=== PATIENT | female | born 1980 | race American Indian/Alaskan Native ===

== ENCOUNTER 2017-02-25 04:49 | Emergency (ER) | payer SELFPAY ==
[2017-02-25] MEDS ORDERED: TYLENOL ONE (04:59)
[2017-02-25] MEDS ORDERED: TYLENOL PO ONE (05:29)
[2017-02-25 06:01] VITALS: BP 105/65
--- NOTE | 2017-02-25 06:54 | XRay Report ---
FINAL REPORT PROCEDURE: XRAY FOOT COMPLETE RIGHT TECHNIQUE: The right foot radiographs, AP, lateral, and oblique views. CPT 72545 HISTORY: PT STATED THAT SHE STUBBED HER GREAT TOE WHICH CAUSED HER NAIL TO COME OFF ASKED IF SHE HAD STEPPED ON ANY GLASS AFTER SEEING ARTIFACT ON OBLIQUE IMAG AND SHE STATED THERE WAS NO PAIN AROUNDTHAT AREA [facility] [place] [facility] COMPARISON: No prior studies are available for comparison. FINDINGS: Fracture (s) and/or Dislocation(s): None . Alignment: Normal . Joint space(s): Normal . Soft tissues: There is no soft tissue mass. There is soft tissue swelling of the 1st digit.. Bone mineralization: Normal . Foreign bodies: There are radiopaque densities adjacent to the 4th and 5th metatarsal bones which could be foreign bodies.. Calcaneal spurring: None . IMPRESSION: There is no fracture or dislocation. There is no soft tissue mass. There is soft tissue swelling of the 1st digit.. There are radiopaque densities adjacent to the 4th and 5th metatarsal bones which could be foreign bodies..
[2017-02-25] MEDS ORDERED: BOOSTRIX IM ONE (09:18)
[2017-02-25] MEDS ORDERED: TORADOL IM ONE (09:18)
--- NOTE | 2017-02-25 09:51 | Emergency Department Report ---
ED Lower Extremity HPI - General Chief Complaint: Extremity Injury, Lower Stated Complaint: TOE INJURY Time Seen by Provider: 02/25/17 08:54 Source: patient Mode of arrival: Ambulatory Limitations: No Limitations - History of Present Illness Initial Comments: This is a 36-year-old female nontoxic, well nourished in appearance, no acute signs of distress the principal ED complaining of right g= great toe pain status post direct blow has occurred today around 2 AM. Patient stated he was walking up the stairs when she missed a step and hit her great toe against concrete. Patient also now reports the pain is shooting up towards her foot. Patient denies any trauma to her foot area. Denies any foreign body. Denies numbness, tingling, fever, chills, headache, stiff neck, short of breath, nausea or vomiting. Patient also states that her nail came off after impaction. Patient denies any bleeding, laceration, or abrasions. Patient denies any drug allergies. Denies past medical history. Last menstrual period 02/15/2017. Complaint: other (right great toe injury) -: Gradual, This morning Place: street/outdoors Severity: moderate Severity scale (0 -10): 10 Context: direct blow Associated Symptoms: able to partially bear weight, ambulatory. denies: snap/ pop sensation, swelling, numbness, tingling, unable to bear weight - Related Data Previous Rx's Medication Instructions Recorded Last Taken Type Cephalexin [Keflex] 500 mg PO Q8HR 5 Days 02/25/17 Unknown Rx Ibuprofen [Motrin 600 MG tab] 600 mg PO Q8H PRN #30 tablet 02/25/17 Unknown Rx Allergies Allergy/AdvReac Type Severity Reaction Status Date / Time No Known Allergies Allergy Verified 02/25/17 05:29 ED Review of Systems ROS: Stated complaint: TOE INJURY Other details as noted in HPI Constitutional: denies: chills, fever Eyes: denies: eye pain, eye discharge, vision change ENT: denies: ear pain, throat pain Respiratory: denies: cough, shortness of breath, wheezing Cardiovascular: denies: chest pain, palpitations Endocrine: no symptoms reported Gastrointestinal: denies: abdominal pain, nausea, diarrhea Genitourinary: denies: urgency, dysuria, discharge Musculoskeletal: denies: back pain, joint swelling, arthralgia Skin: denies: rash, lesions Neurological: denies: headache, weakness, paresthesias Psychiatric: denies: anxiety, depression Hematological/Lymphatic: denies: easy bleeding, easy bruising ED Past Medical Hx - Past Medical History Previous Medical History?: No - Surgical History Past Surgical History?: No - Social History Smoking Status: Never Smoker Substance Use Type: Alcohol - Medications Home Medications: Home Medications Medication Instructions Recorded Confirmed Last Taken Type Cephalexin [Keflex] 500 mg PO Q8HR 5 Days 02/25/17 Unknown Rx Ibuprofen [Motrin 600 MG tab] 600 mg PO Q8H PRN #30 tablet 02/25/17 Unknown Rx ED Physical Exam - General Limitations: No Limitations General appearance: alert, in no apparent distress - Head Head exam: Present: atraumatic, normocephalic, normal inspection - Eye Eye exam: Present: normal appearance, PERRL, EOMI. Absent: scleral icterus, conjunctival injection, nystagmus, periorbital swelling, periorbital tenderness Pupils: Present: normal accommodation - ENT ENT exam: Present: normal exam, normal orophraynx, mucous membranes moist, TM's normal bilaterally, normal external ear exam - Neck Neck exam: Present: normal inspection, full ROM. Absent: tenderness, meningismus, lymphadenopathy, thyromegaly - Respiratory Respiratory exam: Present: normal lung sounds bilaterally. Absent: respiratory distress, wheezes, rales, rhonchi, stridor, chest wall tenderness, accessory muscle use, decreased breath sounds, prolonged expiratory - Cardiovascular Cardiovascular Exam: Present: regular rate, normal rhythm, normal heart sounds. Absent: bradycardia, tachycardia, irregular rhythm, systolic murmur, diastolic murmur, rubs, gallop - GI/Abdominal GI/Abdominal exam: Present: soft, normal bowel sounds. Absent: distended, tenderness, guarding, rebound, rigid, diminished bowel sounds - Rectal Rectal exam: Present: deferred - Extremities Exam Extremities exam: Present: normal inspection, full ROM, normal capillary refill. Absent: tenderness, pedal edema, joint swelling, calf tenderness - Expanded Lower Extremity Exam Right Hip exam: Present: full ROM, tenderness, external rotation, internal rotation, pelvic stability. Absent: swelling, abrasion, laceration, ecchymosis, deformity , crepidus, dislocation, erythema, shortening Upper Leg exam: Present: normal inspection, full ROM. Absent: tenderness, swelling, abrasion, laceration, ecchymosis, deformity, crepidus, dislocation, erythema Knee exam: Present: normal inspection, full ROM, full knee extension. Absent: tenderness, swelling, abrasion, laceration, ecchymosis, deformity, crepidus, dislocation, erythema, effusion, pain w/ pronation/supination, posterior draw sign, pain/laxity with valgus, pain/laxity with varus Lower Leg exam: Present: normal inspection, full ROM. Absent: tenderness, swelling, abrasion, laceration, ecchymosis, deformity, crepidus, dislocation, erythema, palpable cord, Kin's sign Ankle exam: Present: normal inspection, full ROM. Absent: tenderness, swelling , abrasion, laceration, ecchymosis, deformity, dislocation, erythema, anterior draw sign Foot/Toe exam: Present: normal inspection, full ROM, tenderness, nail avulsion ( complete). Absent: swelling, abrasion, laceration, ecchymosis, deformity, crepidus, dislocation, erythema, amputation, puncture wound, foreign body, calcaneal tenderness, tenderness at base of 5th metatarsal, subungual hematoma Neuro vascular tendon exam: Present: no vascular compromise. Absent: pulse deficit, abnormal cap refill, motor deficit, sensory deficit, tendon deficit, extremity cold to touch, pallor, abnormal 2-point discrimination, decreased fine /light touch, foot drop, peroneal nerve deficit, significant pain with passive ROM of distal joint Gait: Positive: observed and limited by pain 1 - complete nail avulsion - Back Exam Back exam: Present: normal inspection, full ROM. Absent: tenderness, CVA tenderness (R), CVA tenderness (L), muscle spasm, paraspinal tenderness, vertebral tenderness, rash noted - Neurological Exam Neurological exam: Present: alert, oriented X3, CN II-XII intact, normal gait, reflexes normal - Psychiatric Psychiatric exam: Present: normal affect, normal mood - Skin Skin exam: Present: warm, dry, intact, normal color. Absent: rash - Other Other exam information: No trauma, laceration, abrasions noted to the second, third, fourth, and fifth metatarsals. First metatarsal sterile complete nail avulsion present. No bleeding noted. No swelling pus or drainage noted. Normal range of motion. Normal capillary refill. There is no foreign body noted to any metatarsal region. ED Course Vital Signs 02/25/17 05:56 Temperature 97.9 F Pulse Rate 68 Respiratory 18 Rate Blood Pressure 105/65 [Right] O2 Sat by Pulse 100 Oximetry - Reevaluation(s) Reevaluation #1: 02/25/17 09:57 Patient is able speak full sentences but no signs of distress noted. ED Lower Extremity MDM - Medical Decision Making ED course; this is a 36-year-old female that presents with right great toe nail avulsion 1- patient was examined myself. Patient received ibuprofen and Toradol for pain and ED. X-ray has been obtained and results of negative fractures or dislocation or soft tissue swelling or mass to the first digit. However there are radial accident that is adjacent to the fifth and fourth metatarsal bones which could indicate foreign bodies. I spoke to patient about the xray findings and patient stated stepped in glass when she was 15 years old and is aware of the foreign body. 2- patient was discharged with crutches and a sterile soaked 4 x 4 and wrapped with Saman has been applied to the nail avulsion. Patient was given Keflex at the time of discharge. 3- patient was instructed to follow-up with orthopedic doctor in 3-5 days or if symptoms such as numbness, tingling, pus, drainage, fever, chills chest pain or short of breath return to emergency room as was possible. 4- At time time of discharge, the patient does not seem toxic or ill in appearance. No acute signs of distress noted. Patient agrees to discharge treatment plan of care. No further questions noted by the patient. Critical care attestation.: If time is entered above; I have spent that time in minutes in the direct care of this critically ill patient, excluding procedure time. ED Disposition Clinical Impression: Nail avulsion of toe Qualifiers: Encounter type: initial encounter Qualified Code(s): S91.209A - Unspecified open wound of unspecified toe(s) with damage to nail, initial encounter Toe contusion Qualifiers: Encounter type: initial encounter Toe: great toe Damage to nail status: with damage Laterality: right Qualified Code(s): S90.211A - Contusion of right great toe with damage to nail, initial encounter Disposition: TO HOME OR SELFCARE Is pt being admited?: No Does the pt Need Aspirin: No Condition: Stable Instructions: Toenail/Fingernail Removal (ED), Foot Contusion (ED), Ibuprofen ( By mouth), Crutch Instructions (ED), Cephalexin (By mouth) Additional Instructions: follow-up with orthopedic doctor in 3-5 days or if symptoms such as numbness, tingling, pus, drainage, fever, chills chest pain or short of breath return to emergency room as soon as possible. Take full course of antibiotics prescribed Prescriptions: Cephalexin [Keflex] 500 mg PO Q8HR 5 Days Ibuprofen [Motrin 600 MG tab] 600 mg PO Q8H PRN #30 tablet PRN Reason: Pain Referrals: PRIMARY CARE, [Primary Care Provider] - 3-5 Days MUKUL MOREJON MD [Staff Physician] - 3-5 Days MARIO SYED MD [Staff Physician] - 3-5 Days [facility] [Outside] - 3-5 Days [facility] [Outside] - 3-5 Days Forms: Work/School Release Form(ED)
== END 2017-02-25 10:35 | disposition home or self-care (01) ==
LOC: ED 04:49
DX: S91.201A Unspecified open wound of right great toe with damage to nail, initial encounter (principal); S90.111A Contusion of right great toe without damage to nail, initial encounter; W22.8XXA Striking against or struck by other objects, initial encounter; Y93.89 Activity, other specified; Y92.89 Other specified places as the place of occurrence of the external cause; Y99.8 Other external cause status
CPT/HCPCS: 73630; 90471; 90715; 96372; 99283; J1885

== ENCOUNTER 2017-12-19 23:23 | Emergency (ER) | payer SELFPAY ==
[2017-12-20 00:13] VITALS: BP 133/83
== END 2017-12-19 23:51 | disposition left against medical advice (07) ==
LOC: ED 23:23
DX: R10.9 Unspecified abdominal pain (principal); R42 Dizziness and giddiness; Z53.21 Procedure and treatment not carried out due to patient leaving prior to being seen by health care provider

== ENCOUNTER 2018-04-26 18:45 | Emergency (ER) | payer SELFPAY ==
[2018-04-26 18:57] VITALS: BP 103/72
[2018-04-26 19:44] LABS: Bacteria,Urine 1+ /HPF (Negative); Bilirubin,Urine NEG (Negative); Blood,Urine NEG (Negative); Color,Urine Yellow (Yellow); Mucus,Urine 3+ /HPF; Sperm,Urine FEW /HPF (NP)
[2018-04-26 19:45] LABS: WBC,Urine > 182.0 /HPF (0.0-6.0)
== END 2018-04-26 20:11 | disposition left against medical advice (07) ==
LOC: ED 18:45
DX: M54.5 Low back pain (principal); Z53.21 Procedure and treatment not carried out due to patient leaving prior to being seen by health care provider
CPT/HCPCS: 81001

== ENCOUNTER 2018-04-28 09:30 | Emergency (ER) | payer SELFPAY ==
--- NOTE | 2018-04-28 10:53 | Emergency Department Report ---
Blank Doc - Documentation Documentation: Patient is a 37-year-old [place] female who is complaining of bilateral lower quadrant pelvic pain for approximately one month that has been off and on. Patient states his last minutes to hours at a time and is crampy in nature. Patient states this is occurred daily. Patient denies any fevers chills nausea vomiting diarrhea or abnormal vaginal discharge or abnormal vaginal bleeding or dysuria. Patient states she was somewhat nauseous yesterday. On brief physical exam patient states she is not tender at this time she has a normal exam. Patient will have a urinalysis and test performed as well as a pelvic ultrasound to rule out abnormal ovarian conditions.
[2018-04-28 11:31] LABS: HCG Qualitative,Urine Negative (Negative)
[2018-04-28 11:35] LABS: Bilirubin,Urine NEG (Negative); Blood,Urine NEG (Negative); Color,Urine Yellow (Yellow); Mucus,Urine 1+ /HPF
--- NOTE | 2018-04-28 12:30 | Ultrasound Report ---
ULTRASOUND PELVIS COMPLETE - TRANSABDOMINAL AND TRANSVAGINAL: INDICATION: Pelvic pain. COMPARISON: None similar. FINDINGS: Transabdominal and transvaginal pelvic sonography performed in this patient with LMP of 04/13/2018 demonstrates a 11 x 6.8 x 6.8 cm anteverted uterus with at least 2 suspected fibroids, one upper posterior body measuring 1.8 x 1.3 cm, endovaginal image 21 while the other larger anteriorly to the left is 4 x 2.8 cm, endovaginal image 23. Echogenic endometrial stripe thickness toward the fundus is approximately 1.7 cm, endovaginal image 8. A 1.1 cm complex nabothian cyst may be noted. No significant free fluid. Unremarkable 3 x 1.9 x 2.4 cm right ovary. Left ovary measures 3.7 x 2.3 x 3.1 cm and demonstrates a 1.8 x 1.5 cm cyst, endovaginal image 34. CONCLUSION: No acute significant pelvic sonographic abnormality with few incidental findings, including uterine fibroids, as described. Please correlate. Thank you for the opportunity to participate in this patient's care.
--- NOTE | 2018-04-28 12:38 | Emergency Department Report ---
ED Abdominal Pain HPI - General Chief Complaint: Abdominal Pain Stated Complaint: SHARP PAIN/LOWER BACK PAIN Time Seen by Provider: 04/28/18 10:46 Source: patient Mode of arrival: Ambulatory Limitations: No Limitations - History of Present Illness Initial Comments: This is a 37-year-old female who is complaining of lower abdominal and low back pain for approximately 1 month. Patient reported some nausea associated with symptoms that are intermittent. She reports abdominal pain is sharp pain that lasts 3-40 minutes. Reports pain is crampy at times. There is vaginal discharge which is normal for her. She denies fevers, chills, nausea or vomiting, diarrhea, vaginal bleeding, or dysuria. MD Complaint: abdominal pain Onset/Timin -: month(s) Location: suprapubic Radiation: none Migration to: no migration Severity: mild Severity scale (0 -10): 1 Quality: cramping, sharp Consistency: intermittent Improves With: nothing Worsens With: nothing Associated Symptoms: nausea Treatments Prior to Arrival: prescription analgesics - Related Data LMP Date: 04/13/18 Previous Rx's Medication Instructions Recorded Last Taken Type Ibuprofen [Motrin 600 MG tab] 600 mg PO Q8H PRN #30 tablet 02/25/17 Unknown Rx cephALEXin [Keflex] 500 mg PO Q8HR 5 Days cap 02/25/17 Unknown Rx Phenazopyridine [Pyridium] 200 mg PO TID #6 tab 04/28/18 Unknown Rx Sulfamethoxazole/Trimethoprim 1 each PO BID #6 tablet 04/28/18 Unknown Rx [Bactrim DS TAB] Allergies Allergy/AdvReac Type Severity Reaction Status Date / Time No Known Allergies Allergy Verified 02/25/17 05:29 ED Review of Systems ROS: Stated complaint: SHARP PAIN/LOWER BACK PAIN Other details as noted in HPI Constitutional: denies: chills, fever Respiratory: denies: cough, shortness of breath, wheezing Cardiovascular: denies: chest pain, palpitations Gastrointestinal: abdominal pain, nausea. denies: diarrhea Genitourinary: denies: urgency, dysuria, discharge Musculoskeletal: denies: back pain, joint swelling, arthralgia Skin: denies: rash, lesions Neurological: denies: headache, weakness, paresthesias Psychiatric: denies: anxiety, depression ED Past Medical Hx - Past Medical History Previous Medical History?: No - Surgical History Past Surgical History?: No - Social History Smoking Status: Never Smoker Substance Use Type: None - Medications Home Medications: Home Medications Medication Instructions Recorded Confirmed Last Taken Type Ibuprofen [Motrin 600 MG tab] 600 mg PO Q8H PRN #30 tablet 02/25/17 Unknown Rx cephALEXin [Keflex] 500 mg PO Q8HR 5 Days cap 02/25/17 Unknown Rx Phenazopyridine [Pyridium] 200 mg PO TID #6 tab 04/28/18 Unknown Rx Sulfamethoxazole/Trimethoprim 1 each PO BID #6 tablet 04/28/18 Unknown Rx [Bactrim DS TAB] ED Physical Exam - General Limitations: No Limitations General appearance: alert, in no apparent distress, obese - Respiratory Respiratory exam: Present: normal lung sounds bilaterally. Absent: respiratory distress - Cardiovascular Cardiovascular Exam: Present: regular rate, normal rhythm. Absent: systolic murmur, diastolic murmur, rubs, gallop - GI/Abdominal GI/Abdominal exam: Present: soft, normal bowel sounds. Absent: distended, tenderness, guarding, rebound, rigid, organomegaly, mass - Back Exam Back exam: Absent: CVA tenderness (R), CVA tenderness (L) - Neurological Exam Neurological exam: Present: alert, oriented X3 - Psychiatric Psychiatric exam: Present: normal affect, normal mood - Skin Skin exam: Present: warm, dry, intact, normal color. Absent: rash ED Course Vital Signs 04/28/18 09:46 Temperature 99.4 F Pulse Rate 85 Respiratory 18 Rate Blood Pressure 109/65 O2 Sat by Pulse 97 Oximetry ED Medical Decision Making - Radiology Data Radiology results: report reviewed, image reviewed ULTRASOUND PELVIS COMPLETE - TRANSABDOMINAL AND TRANSVAGINAL: INDICATION: Pelvic pain. COMPARISON: None similar. FINDINGS: Transabdominal and transvaginal pelvic sonography performed in this patient with LMP of 04/13/2018 demonstrates a 11 x 6.8 x 6.8 cm anteverted uterus with at least 2 suspected fibroids, one upper posterior body measuring 1.8 x 1.3 cm, endovaginal image 21 while the other larger anteriorly to the left is 4 x 2.8 cm, endovaginal image 23. Echogenic endometrial stripe thickness toward the fundus is approximately 1.7 cm, endovaginal image 8. A 1.1 cm complex nabothian cyst may be noted. No significant free fluid. Unremarkable 3 x 1.9 x 2.4 cm right ovary. Left ovary measures 3.7 x 2.3 x 3.1 cm and demonstrates a 1.8 x 1.5 cm cyst, endovaginal image 34. CONCLUSION: No acute significant pelvic sonographic abnormality with few incidental findings, including uterine fibroids, as described. Please correlate. - Medical Decision Making Patient was examined by me and screened by Dr. Aguilar. Vitals are normal and patient is in no acute distress. Obtained labs and ultrasound pelvic and transvaginal. Ultrasound dictated by radiologist and report reviewed by myself. Urinalysis elevated wbc's and leukocyte esterase, and negative urine hCG. No acute significant pelvic sonographic abnormality with few incidental findings , including uterine fibroids, as described. Patient informed of results. Start bactrim DS and Pyridium for urinary tract infection. Referral to [facility] for continuous of care of incidental findings. Plan discussed with patient to discharge home and treat outpatient. Patient discharged home in stable condition. Follow up with PCP in 2-3 days. Critical care attestation.: If time is entered above; I have spent that time in minutes in the direct care of this critically ill patient, excluding procedure time. ED Disposition Clinical Impression: Fibroid, uterine Qualifiers: Uterine leiomyoma location: intramural and submucous Qualified Code(s): D25.1 - Intramural leiomyoma of uterus; D25.0 - Submucous leiomyoma of uterus UTI (urinary tract infection) Qualifiers: Urinary tract infection type: acute cystitis Hematuria presence: without hematuria Qualified Code(s): N30.00 - Acute cystitis without hematuria Disposition: TO HOME OR SELFCARE Is pt being admited?: No Does the pt Need Aspirin: No Condition: Stable Instructions: Uterine Fibroids (ED), Urinary Tract Infection in Women (ED) Additional Instructions: Increase fluid intake to 1L to 2L daily. Complete full course of antibiotics as prescribed. Avoid drinking alcohol while taking antibiotics and for 24 hours after completion. Follow up with primary care provider in 2-3 days. Follow up with [facility] for continued care. Prescriptions: Phenazopyridine [Pyridium] 200 mg PO TID #6 tab Sulfamethoxazole/Trimethoprim [Bactrim DS TAB] 1 each PO BID #6 tablet Referrals: [facility] [Provider Group] - 3-5 Days [facility] [Outside] - 3-5 Days [facility] [Outside] - 3-5 Days Forms: Work/School Release Form(ED) Time of Disposition: 13:28 Print Language: PASHTO
[2018-04-28 13:39] VITALS: BP 105/64
== END 2018-04-28 13:40 | disposition home or self-care (01) ==
LOC: ED 09:30
DX: N30.00 Acute cystitis without hematuria (principal); D25.9 Leiomyoma of uterus, unspecified
CPT/HCPCS: 76830; 76856; 81001; 81025; 99284

== ENCOUNTER 2018-10-04 12:16 | Emergency (ER) | payer OTHER ==
--- NOTE | 2018-10-04 12:28 | Emergency Department Report ---
Chief Complaint: Upper Respiratory Infection Stated Complaint: SOB/FLU LIKE SYM Time Seen by Provider: 10/04/18 12:24 - HPI History of Present Illness: Pt has dry cough that began yesterday (+) chills, sore throat with coughing, rhinorrhea, congestion no N/V, ear ache (+) sick contact with flu will swab for flu MSE complete MSE screening note: Focused history and physical exam performed. Due to findings the following was ordered: flu swab ED Disposition for MSE Condition: Stable
[2018-10-04] MEDS ORDERED: DUONEB *Not for PRN Use IH ONE (15:07)
--- NOTE | 2018-10-04 16:32 | Emergency Department Report ---
ED General Adult HPI - General Chief complaint: Upper Respiratory Infection Stated complaint: SOB/FLU LIKE SYM Time Seen by Provider: 10/04/18 12:24 Source: patient Mode of arrival: Ambulatory Limitations: No Limitations - History of Present Illness Initial comments: She presents to the emergency department with chief complaint of a sore throat and a cough with body aches for the last 2 days. Patient endorses a sick contact at work. Patient denies getting the influenza vaccine this year. Patient has a chest pain, shortness of breath, abdominal pain, nausea, vomiting, diarrhea -: Gradual Severity scale (0 -10): 8 Consistency: constant Improves with: none Worsens with: none Associated Symptoms: denies other symptoms Treatments Prior to Arrival: none - Related Data Previous Rx's Medication Instructions Recorded Last Taken Type Ibuprofen [Motrin 600 MG tab] 600 mg PO Q8H PRN #30 tablet 02/25/17 Unknown Rx cephALEXin [Keflex] 500 mg PO Q8HR 5 Days cap 02/25/17 Unknown Rx Phenazopyridine [Pyridium] 200 mg PO TID #6 tab 04/28/18 Unknown Rx Sulfamethoxazole/Trimethoprim 1 each PO BID #6 tablet 04/28/18 Unknown Rx [Bactrim DS TAB] ALBUTEROL Inhaler (OR & NICU) 2 puff IH Q4HR PRN #1 inhalation 10/04/18 Unknown Rx [ProAir HFA Inhaler] Naproxen [Naprosyn] 500 mg PO BID PRN #20 tablet 10/04/18 Unknown Rx guaiFENesin/CODEINE [Robitussin AC] 5 ml PO Q12HR PRN #180 oral.liqd 10/04/18 Unknown Rx predniSONE [Deltasone] 20 mg PO DAILY #15 tablet 10/04/18 Unknown Rx Allergies Allergy/AdvReac Type Severity Reaction Status Date / Time No Known Allergies Allergy Verified 02/25/17 05:29 ED Review of Systems ROS: Stated complaint: SOB/FLU LIKE SYM Other details as noted in HPI Comment: All other systems reviewed and negative Constitutional: denies: chills, fever Eyes: denies: eye pain, eye discharge, vision change ENT: denies: ear pain, throat pain Respiratory: cough. denies: shortness of breath, wheezing Cardiovascular: denies: chest pain, palpitations Endocrine: no symptoms reported Gastrointestinal: denies: abdominal pain, nausea, diarrhea Genitourinary: denies: urgency, dysuria, discharge Musculoskeletal: denies: back pain, joint swelling, arthralgia Skin: denies: rash, lesions Neurological: denies: headache, weakness, paresthesias Psychiatric: denies: anxiety, depression Hematological/Lymphatic: denies: easy bleeding, easy bruising ED Past Medical Hx - Past Medical History Previous Medical History?: No - Surgical History Past Surgical History?: No - Social History Smoking Status: Never Smoker Substance Use Type: Alcohol - Medications Home Medications: Home Medications Medication Instructions Recorded Confirmed Last Taken Type Ibuprofen [Motrin 600 MG tab] 600 mg PO Q8H PRN #30 tablet 02/25/17 Unknown Rx cephALEXin [Keflex] 500 mg PO Q8HR 5 Days cap 02/25/17 Unknown Rx Phenazopyridine [Pyridium] 200 mg PO TID #6 tab 04/28/18 Unknown Rx Sulfamethoxazole/Trimethoprim 1 each PO BID #6 tablet 04/28/18 Unknown Rx [Bactrim DS TAB] ALBUTEROL Inhaler (OR & NICU) 2 puff IH Q4HR PRN #1 inhalation 10/04/18 Unknown Rx [ProAir HFA Inhaler] Naproxen [Naprosyn] 500 mg PO BID PRN #20 tablet 10/04/18 Unknown Rx guaiFENesin/CODEINE [Robitussin AC] 5 ml PO Q12HR PRN #180 oral.liqd 10/04/18 Unknown Rx predniSONE [Deltasone] 20 mg PO DAILY #15 tablet 10/04/18 Unknown Rx ED Physical Exam - General Limitations: No Limitations General appearance: alert, in no apparent distress - Head Head exam: Present: atraumatic, normocephalic - Eye Eye exam: Present: normal appearance, PERRL, EOMI - ENT ENT exam: Present: normal orophraynx, mucous membranes moist, other (tenderness to palpation of the submandibular lymph nodes bilaterally) - Neck Neck exam: Present: normal inspection - Respiratory Respiratory exam: Present: normal lung sounds bilaterally, wheezes. Absent: respiratory distress, rales, rhonchi - Cardiovascular Cardiovascular Exam: Present: regular rate, normal rhythm. Absent: systolic murmur, diastolic murmur, rubs, gallop - GI/Abdominal GI/Abdominal exam: Present: soft, normal bowel sounds. Absent: distended, tend erness - Extremities Exam Extremities exam: Present: normal inspection - Back Exam Back exam: Present: normal inspection - Neurological Exam Neurological exam: Present: alert, oriented X3, CN II-XII intact. Absent: motor sensory deficit - Psychiatric Psychiatric exam: Present: normal affect, normal mood - Skin Skin exam: Present: warm, dry, intact, normal color. Absent: rash ED Course Vital Signs 10/04/18 10/04/18 12:24 16:10 Temperature 98.1 F Pulse Rate 97 H Pulse Rate [ 90 Posterior Bilateral Throughout] Respiratory 18 Rate Respiratory 18 Rate [Posterior Bilateral Throughout] Blood Pressure 110/72 O2 Sat by Pulse 98 Oximetry ED Medical Decision Making - Lab Data Lab Results 10/04/18 Range/Units Unknown Influenza A (Rapid) Negative (Negative) Influenza B (Rapid) Negative (Negative) - Radiology Data Radiology results: report reviewed - Medical Decision Making Discussed results with the patient Critical care attestation.: If time is entered above; I have spent that time in minutes in the direct care of this critically ill patient, excluding procedure time. ED Disposition Clinical Impression: Bronchitis Disposition: [id number] TO HOME OR SELFCARE Is pt being admited?: No Does the pt Need Aspirin: No Condition: Stable Instructions: Acute Bronchitis (ED) Additional Instructions: return if worse Prescriptions: ALBUTEROL Inhaler (OR & NICU) [ProAir HFA Inhaler] 2 puff IH Q4HR PRN #1 inhalation PRN Reason: Shortness Of Breath guaiFENesin/CODEINE [Robitussin AC] 5 ml PO Q12HR PRN #180 oral.liqd PRN Reason: Cough Naproxen [Naprosyn] 500 mg PO BID PRN #20 tablet PRN Reason: pain predniSONE [Deltasone] 20 mg PO DAILY #15 tablet Referrals: MARIELOS PEARSON MD [Primary Care Provider] - 3-5 Days [facility] [Provider Group] - 3-5 Days [facility] [Provider Group] - 3-5 Days Forms: Work/School Release Form(ED) Time of Disposition: 16:59
[2018-10-04 17:11] VITALS: BP 100/61
--- NOTE | 2018-10-04 18:17 | XRay Report ---
PROCEDURE: XR CHEST ROUTINE 2V TECHNIQUE: 2 views of the chest HISTORY: cough COMPARISONS: None FINDINGS: Normal heart size. Lungs are clear well-expanded without focal infiltrate or consolidation. There are scattered calcified granulomata. There is moderate bronchial wall thickening. IMPRESSION: Old granulomatous disease. Moderate bronchial thickening may suggest bronchitis. No pneumonia.. This document is electronically signed by Heidi Conklin MD., October 04 2018 06:16:16 PM ET
== END 2018-10-04 17:12 | disposition home or self-care (01) ==
LOC: ED 12:16
DX: J40 Bronchitis, not specified as acute or chronic (principal)
CPT/HCPCS: 71046; 87400; 94640

== ENCOUNTER 2018-11-27 20:19 | Emergency (ER) | payer MEDICAID, OTHER ==
[2018-11-27 20:24] VITALS: BP 108/68
[2018-11-27] MEDS ORDERED: ULTRAM PO ONE (22:37)
--- NOTE | 2018-11-27 23:45 | Emergency Department Report ---
ED General Adult HPI - General Chief complaint: Extremity Injury, Lower Stated complaint: RT ANKLE PAIN Time Seen by Provider: 11/27/18 22:37 Source: patient Mode of arrival: Ambulatory Limitations: No Limitations - History of Present Illness Initial comments: pt presenst for right lower leg infected insect bite x 1 week symptom include pain burning itching erythema no drainage no fever no chills no n/v no open wound pt is ambulatory with steady gait, Onset/Timin -: week(s) Location: lower extremity Severity scale (0 -10): 9 Quality: burning, aching, other (itching) Consistency: constant Improves with: none Worsens with: none Associated Symptoms: denies other symptoms Treatments Prior to Arrival: none - Related Data Previous Rx's Medication Instructions Recorded Last Taken Type Ibuprofen [Motrin 600 MG tab] 600 mg PO Q8H PRN #30 tablet 02/25/17 Unknown Rx cephALEXin [Keflex] 500 mg PO Q8HR 5 Days cap 02/25/17 Unknown Rx Phenazopyridine [Pyridium] 200 mg PO TID #6 tab 04/28/18 Unknown Rx Sulfamethoxazole/Trimethoprim 1 each PO BID #6 tablet 04/28/18 Unknown Rx [Bactrim DS TAB] ALBUTEROL Inhaler (OR & NICU) 2 puff IH Q4HR PRN #1 inhalation 10/04/18 Unknown Rx [ProAir HFA Inhaler] Naproxen [Naprosyn] 500 mg PO BID PRN #20 tablet 10/04/18 Unknown Rx guaiFENesin/CODEINE [Robitussin AC] 5 ml PO Q12HR PRN #180 oral.liqd 10/04/18 Unknown Rx predniSONE [Deltasone] 20 mg PO DAILY #15 tablet 10/04/18 Unknown Rx cephALEXin [Keflex] 500 mg PO Q6HR 10 Days #40 capsule 11/27/18 Unknown Rx diphenhydrAMINE [Benadryl CAP] 25 mg PO Q6HR PRN #30 capsule 11/27/18 Unknown Rx traMADol [Ultram] 50 mg PO Q6HR PRN #12 tablet 11/27/18 Unknown Rx Allergies Allergy/AdvReac Type Severity Reaction Status Date / Time No Known Allergies Allergy Verified 02/25/17 05:29 ED Review of Systems ROS: Stated complaint: RT ANKLE PAIN Other details as noted in HPI Constitutional: denies: chills, fever Eyes: denies: eye pain, eye discharge, vision change ENT: denies: ear pain, throat pain Respiratory: denies: cough, shortness of breath, wheezing Cardiovascular: denies: chest pain, palpitations Endocrine: no symptoms reported Gastrointestinal: denies: abdominal pain, nausea, diarrhea Genitourinary: denies: urgency, dysuria, discharge Musculoskeletal: as per HPI Skin: other (infecte insect bite rle ). denies: rash, lesions Neurological: denies: headache, weakness, paresthesias Psychiatric: denies: anxiety, depression Hematological/Lymphatic: denies: easy bleeding, easy bruising ED Past Medical Hx - Past Medical History Previous Medical History?: No - Surgical History Past Surgical History?: No - Social History Smoking Status: Never Smoker Substance Use Type: None - Medications Home Medications: Home Medications Medication Instructions Recorded Confirmed Last Taken Type Ibuprofen [Motrin 600 MG tab] 600 mg PO Q8H PRN #30 tablet 02/25/17 Unknown Rx cephALEXin [Keflex] 500 mg PO Q8HR 5 Days cap 02/25/17 Unknown Rx Phenazopyridine [Pyridium] 200 mg PO TID #6 tab 04/28/18 Unknown Rx Sulfamethoxazole/Trimethoprim 1 each PO BID #6 tablet 04/28/18 Unknown Rx [Bactrim DS TAB] ALBUTEROL Inhaler (OR & NICU) 2 puff IH Q4HR PRN #1 inhalation 10/04/18 Unknown Rx [ProAir HFA Inhaler] Naproxen [Naprosyn] 500 mg PO BID PRN #20 tablet 10/04/18 Unknown Rx guaiFENesin/CODEINE [Robitussin AC] 5 ml PO Q12HR PRN #180 oral.liqd 10/04/18 Unknown Rx predniSONE [Deltasone] 20 mg PO DAILY #15 tablet 10/04/18 Unknown Rx cephALEXin [Keflex] 500 mg PO Q6HR 10 Days #40 capsule 11/27/18 Unknown Rx diphenhydrAMINE [Benadryl CAP] 25 mg PO Q6HR PRN #30 capsule 11/27/18 Unknown Rx traMADol [Ultram] 50 mg PO Q6HR PRN #12 tablet 11/27/18 Unknown Rx ED Physical Exam - General Limitations: No Limitations General appearance: alert, in no apparent distress - Head Head exam: Present: atraumatic, normocephalic - Eye Eye exam: Present: normal appearance, PERRL, EOMI Pupils: Present: normal accommodation - ENT ENT exam: Present: mucous membranes moist - Neck Neck exam: Present: normal inspection, full ROM - Respiratory Respiratory exam: Present: normal lung sounds bilaterally. Absent: respiratory distress, wheezes, rhonchi - Cardiovascular Cardiovascular Exam: Present: regular rate, normal rhythm, normal heart sounds. Absent: systolic murmur, diastolic murmur, rubs, gallop - GI/Abdominal GI/Abdominal exam: Present: soft, normal bowel sounds - Rectal Rectal exam: Present: deferred - Extremities Exam Extremities exam: Present: normal inspection, full ROM, tenderness (right lower extrem site tenderness mild erythema non fluctuant no drainage ), normal capillary refill. Absent: pedal edema, joint swelling, calf tenderness - Expanded Lower Extremity Exam Right Lower Leg exam: Present: tenderness, erythema (insect sting site ). Absent: laceration, ecchymosis, deformity, crepidus, dislocation, palpable cord, Kin's sign Ankle exam: Present: normal inspection, full ROM. Absent: tenderness Foot/Toe exam: Present: normal inspection, full ROM. Absent: tenderness Neuro vascular tendon exam: Absent: motor deficit, sensory deficit, tendon deficit Gait: Positive: observed and normal - Back Exam Back exam: Present: normal inspection, full ROM. Absent: tenderness, rash noted - Neurological Exam Neurological exam: Present: alert, oriented X3, CN II-XII intact, normal gait, reflexes normal - Psychiatric Psychiatric exam: Present: normal affect, normal mood - Skin Skin exam: Present: warm, dry, intact, normal color. Absent: rash ED Course Vital Signs 11/27/18 11/27/18 20:23 23:02 Temperature 99.3 F Pulse Rate 85 Respiratory 18 15 Rate Blood Pressure 108/68 O2 Sat by Pulse 99 Oximetry ED Medical Decision Making - Medical Decision Making this is an infected insect bite no drainage no fever mild erythema nonfluctuant plan: keflex, ultram, benadryl site care as directed , pt will follow up with [facility] in 2 days for wound check will return to ed if symptoms worsen. Critical care attestation.: If time is entered above; I have spent that time in minutes in the direct care of this critically ill patient, excluding procedure time. ED Disposition Clinical Impression: Cellulitis Qualifiers: Site of cellulitis: extremity Site of cellulitis of extremity: lower extremity Laterality: right Qualified Code(s): L03.115 - Cellulitis of right lower limb Infected insect bite Qualifiers: Encounter type: initial encounter Qualified Code(s): W57.XXXA - Bitten or stung by nonvenomous insect and other nonvenomous arthropods, initial encounter Disposition: TO HOME OR SELFCARE Is pt being admited?: No Does the pt Need Aspirin: No Condition: Stable Instructions: Cellulitis (ED), Insect Bite or Sting (ED) Prescriptions: diphenhydrAMINE [Benadryl CAP] 25 mg PO Q6HR PRN #30 capsule PRN Reason: itching cephALEXin [Keflex] 500 mg PO Q6HR 10 Days #40 capsule traMADol [Ultram] 50 mg PO Q6HR PRN #12 tablet PRN Reason: Pain Referrals: [facility] [Outside] - 3-5 Days Forms: Work/School Release Form(ED) Time of Disposition: 23:46
== END 2018-11-27 23:54 | disposition home or self-care (01) ==
LOC: ED 20:19
DX: L03.115 Cellulitis of right lower limb (principal); W57.XXXA Bitten or stung by nonvenomous insect and other nonvenomous arthropods, initial encounter; Y93.89 Activity, other specified; Y92.89 Other specified places as the place of occurrence of the external cause; Y99.8 Other external cause status
CPT/HCPCS: 99282